=== PATIENT | female | born 1995 | race Caucasian/White ===

== ENCOUNTER 2023-01-03 07:19 | Emergency (ER) | payer OTHER ==
[2023-01-03 07:25] VITALS: BP 151/76; PULSE 100; RESP 18; TEMP 98.1; BMI 33.0
[2023-01-03 08:19] LABS: BASO % 0.7 % (0-2.0); EOS % 11.5 % (0-4.5); HEMATOCRIT 40.5 % (32.4-45.2); HEMOGLOBIN 13.3 GM/dL (10.7-15.3); LYMPH % 25.8 % (8-40); MCH 26.9 pg (25.7-33.7); MCHC 32.8 g/dl (32.0-36.0); MEAN CELL VOLUME 81.8 fl (80-96); MEAN PLT VOLUME 7.8 fl (7.5-11.1); MONO % 6.2 % (3.8-10.2); NEUT % 55.8 % (42.8-82.8); PLATELET COUNT 304 10^3/uL (134-434); RBC 4.95 M/mm3 (3.60-5.2); WHITE BLOOD COUNT 7.9 K/mm3 (4.0-10.0)
[2023-01-03 08:35] LABS: POTASSIUM 4.6 mmol/L (3.5-5.1)
[2023-01-03 08:36] LABS: BLOOD UREA NITROGEN 10.7 mg/dL (7-18); CALCIUM 8.7 mg/dL (8.5-10.1)
[2023-01-03 08:40] LABS: CREATININE 0.8 mg/dL (0.55-1.3)
== END 2023-01-03 11:04 | disposition home or self-care (01) ==
LOC: JER 07:19
DX: N64.52 Nipple discharge (principal); N64.4 Mastodynia; N64.89 Other specified disorders of breast
CPT/HCPCS: 36415; 76641-TC-LT; 80048; 85025; 87070; 87205; 99284-25

== ENCOUNTER → 2023-02-11 | Day surgery (SDC) | payer OTHER | END | disposition home or self-care (01) | LOC: FRADUS-SUR 08:30 | PROVIDERS: ATTEND Surgery Surgical Oncology | PROC: 0HBU3ZX Excision of Left Breast, Percutaneous Approach, Diagnostic (ICD-10-PCS; principal; 2023-02-11) | DX: D24.2 Benign neoplasm of left breast (principal); N60.32 Fibrosclerosis of left breast; N64.52 Nipple discharge; N63.24 Unspecified lump in the left breast, lower inner quadrant | CPT/HCPCS: 19085; 19086; 76642-TC-LT; 77065-TC; 88305-TC; A4648; C1887 ==

== ENCOUNTER 2023-03-30 17:02 | Emergency (ER) | payer OTHER ==
[2023-03-30 17:06] VITALS: BMI 35.5
[2023-03-30] MEDS ORDERED: ACETAMINOPHEN 500 MG TABLET (FP) PO ONE (18:26)
[2023-03-30] MEDS ORDERED: ACETAMINOPHEN 500 MG TABLET (FP) ONE (18:31)
[2023-03-30 19:51] VITALS: BP 130/78; RESP 20
[2023-03-30 19:52] VITALS: PULSE 106
[2023-03-30] MEDS ORDERED: IBUPROFEN 400 MG TABLET (FP) PO ONE ×2 (19:52→19:56)
[2023-03-30 21:08] VITALS: TEMP 100.3
== END 2023-03-30 20:55 | disposition home or self-care (01) ==
LOC: JERFT 17:02 → JER 17:02
DX: R50.9 Fever, unspecified (principal); R53.81 Other malaise; R05.9 Cough, unspecified; R09.3 Abnormal sputum; R00.0 Tachycardia, unspecified; U07.1 COVID-19
CPT/HCPCS: 0241U-QW; 93005; 93010; 99284-25

== ENCOUNTER → 2023-04-14 | Day surgery (SDC) | payer OTHER | END | disposition home or self-care (01) | LOC: JRADUS-SUR 09:38 | PROVIDERS: ATTEND Surgery Surgical Oncology | PROC: BH01ZZZ Plain Radiography of Left Breast (ICD-10-PCS; principal; 2023-04-14) | DX: D24.2 Benign neoplasm of left breast (principal) | CPT/HCPCS: 19281; A4648 ==

== ENCOUNTER → 2023-04-16 | Day surgery (SDC) | payer OTHER ==
[2023-03-25 13:56] VITALS: BMI 36.3
[~2023-04-16] MED LIST: ACETAMINOPHEN 1000 MG/100 ML BAG IVPB PRN; BUPIVACAINE HCL/PF 0.5% (5 MG/ML) 30 ML VIAL IJ ONE; BUPIVACAINE HCL/PF 0.5% (5MG/ML) 10 ML VIAL ONE; KETOROLAC TROMETHAMINE 30 MG/1 ML VIAL ONE; LACTATED RINGERS SOLUTION 1,000 ML IV SCH; LIDOCAINE 1%/EPI 1:100000 (20 ML MULTI DOSE VIAL) IJ ONE; LIDOCAINE 1%/EPI 1:100000 (20 ML MULTI DOSE VIAL) ONE; LIDOCAINE HCL/PF 2% SDV 5ML VIAL ONE; MIDAZOLAM HCL 2 MG/2 ML SINGLE DOSE VIAL ONE; ONDANSETRON 4 MG/2 ML VIAL IVPUSH PRN; ONDANSETRON 4 MG/2 ML VIAL ONE; PROMETHAZINE HCL 25 MG/1 ML VIAL IVPB PRN; PROPOFOL 20 ML ONE; oxyCODONE HCL 5 MG TABLET PO PRN
[2023-04-16 17:01] VITALS: RESP 18
[2023-04-16 17:50] VITALS: BP 120/66; PULSE 89; TEMP 98.2
== END | disposition home or self-care (01) ==
LOC: JASU-SURG 04:20
PROVIDERS: ATTEND Surgery Surgical Oncology
PROC: 0HBU0ZX Excision of Left Breast, Open Approach, Diagnostic (ICD-10-PCS; principal; 2023-04-16 15:00)
DX: D24.2 Benign neoplasm of left breast (principal); N60.12 Diffuse cystic mastopathy of left breast; N60.32 Fibrosclerosis of left breast; N60.82 Other benign mammary dysplasias of left breast
CPT/HCPCS: 76098-TC-FY; 81025; 88307-TC; 94760